=== PATIENT | male | born 2000 ===

== ENCOUNTER 2022-07-27 11:12 | Emergency (ER) ==
[~2022-07-27] VITALS: Ht 182.9 cm; Wt 99.8 kg
[2022-07-27] MEDS ORDERED: MAGNESIUM/ALUMINUM/SIMETHICONE 30 ML UDC PO ONE (12:15)
[2022-07-27] MEDS ORDERED: BELLADONNA ALK/PHENOBARBITAL 5 ML UDC PO SCH (12:30)
== END 2022-07-27 12:20 | disposition home or self-care (01) ==
LOC: FSED 12:02
DX: R10.13 Epigastric pain (principal); R10.9 Unspecified abdominal pain; R14.2 Eructation; R11.0 Nausea; F17.210 Nicotine dependence, cigarettes, uncomplicated
CPT/HCPCS: 81003; 99282